=== PATIENT | male | born 1990 | race Caucasian/White ===

== ENCOUNTER 2016-10-04 02:46 | Emergency (ER) | payer MEDICAID ==
[~2016-10-04] VITALS: Ht 172.7 cm; Wt 72.6 kg
[~2016-10-04 02:46] MED LIST: BACTRIM DS TAB1 EAC1 ORAL; CEPHALEXIN500 MG ORAL; NKM
[2016-10-04] MEDS ORDERED: Lidocaine 1% MPF 10mg/ml 5ml ONE (03:44)
[2016-10-04] MEDS ORDERED: DOXYCYCLINE MO100 MG ORAL (03:50)
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
[2016-10-04] MEDS ORDERED: CLOTRIMAZOLE15 GM TOPIC (04:10)
[2016-10-04 04:16] VITALS: BP 132/84
[2016-10-04 04:18] VITALS: BP 132/84
== END 2016-10-04 04:19 | disposition home or self-care (01) ==
LOC: EMR 03:00
DX: N48.1 Balanitis (principal); B36.0 Pityriasis versicolor
CPT/HCPCS: 82962; 96372; 99283; J0696

== ENCOUNTER 2016-10-07 08:02 | Emergency (ER) | payer MEDICAID ==
[~2016-10-07] VITALS: Ht 172.7 cm; Wt 68.0 kg
[~2016-10-07 08:02] MED LIST changes: +CLOTRIMAZOLE15 GM TOPIC; +DOXYCYCLINE MO100 MG ORAL
[2016-10-07 08:25] VITALS: BP 145/82
[2016-10-07] MEDS ORDERED: Bacitracin Oint UD TOPIC ONE ×2 (08:28→08:30)
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
[2016-10-07] MEDS ORDERED: BACITRACIN15 GM TOPIC (08:34)
[2016-10-07] MEDS ORDERED: IBUPROFEN600 MG ORAL (08:34)
[2016-10-07 09:25] VITALS: BP 145/82
== END 2016-10-07 09:30 | disposition home or self-care (01) ==
LOC: EMR 08:21
DX: N47.2 Paraphimosis (principal); N48.1 Balanitis
CPT/HCPCS: 99284